=== PATIENT | female | born 1965 | race Caucasian/White ===

== ENCOUNTER 2020-04-25 08:42 | Day surgery (SDC) | payer MEDICAID ==
[~2020-04-25] VITALS: Ht 157.5 cm; Wt 62.6 kg
[2020-04-25 09:10] VITALS: BP 123/58
[2020-04-25] MEDS ORDERED: normal saline 1000ml 1,000 ML IV SCH (09:10)
[2020-04-25] MEDS ORDERED: TRAZ-256 (09:15)
[2020-04-25] MEDS ORDERED: HYDR12.55 PO (09:15)
[2020-04-25] MEDS ORDERED: TIOT18CA3 (09:15)
[2020-04-25] MEDS ORDERED: FLUT16SP20 (09:15)
[2020-04-25] MEDS ORDERED: AMLO5TAB16 PO (09:18)
[2020-04-25] MEDS ORDERED: LISI-600 PO (09:18)
[2020-04-25] MEDS ORDERED: ADV50250 IH (09:18)
[2020-04-25] MEDS ORDERED: IBUP-2697 (09:31)
[2020-04-25] MEDS ORDERED: calcium PO (09:31)
[2020-04-25] MEDS ORDERED: MULT-1085 PO (09:31)
[2020-04-25] MEDS ORDERED: GABA-530 PO (09:31)
[2020-04-25] MEDS ORDERED: MONT10TA21 PO (09:31)
[2020-04-25] MEDS ORDERED: flaxseed PO (09:31)
[2020-04-25] MEDS ORDERED: LACT1CAP65 PO (09:31)
[2020-04-25] MEDS ORDERED: HYDR-3686 PO (09:31)
[2020-04-25] MEDS ORDERED: vitamin c (09:31)
[2020-04-25] MEDS ORDERED: GLUCOSAMINE CHROND (09:31)
[2020-04-25] MEDS ORDERED: MV-M1TAB19 PO (09:31)
[2020-04-25] MEDS ORDERED: ALBU18HF2 INH (09:31)
[2020-04-25] MEDS ORDERED: VITA-268 PO (09:31)
[2020-04-25] MEDS ORDERED: ATR0.5NEB NEB (09:31)
[2020-04-25] MEDS ORDERED: BUDE10.27 (09:33)
[2020-04-25 09:50] LABS: BASOPHILS % (AUTO) 0.2 % (0-1); EOSINOPHILS # (AUTO) 0.3 X10'3 (0-0.9); EOSINOPHILS % (AUTO) 2.7 % (0-6); HEMATOCRIT 38.9 % (35.0-45.0); HEMOGLOBIN 13.5 g/dl (12.0-16.0); LYMPHOCYTES # (AUTO) 2.9 X10'3 (1.1-4.8); MEAN CORPUSCULAR HEMOGLOBIN 33.3 PG (27.0-31.0); MEAN CORPUSCULAR HGB CONC 34.6 g/dL (33.0-36.5); MEAN CORPUSCULAR VOLUME 96.3 FL (78-98); MEAN PLATELET VOLUME 6.8 FL (7.4-10.4); MONOCYTES # (AUTO) 1.2 X10'3 (0-0.9); MONOCYTES % (AUTO) 12.6 % (2-12); NEUTROPHILS # (AUTO) 5.3 X10'3 (1.8-7.7); NEUTROPHILS % (AUTO) 54.5 % (42-75); PLATELET COUNT 374 X10'3 (140-440); RED BLOOD COUNT 4.04 X10'6 (4.20-5.60); RED CELL DISTRIBUTION WIDTH 15.4 % (11.5-14.5); WHITE BLOOD COUNT 9.7 X10'3 (4.5-11.0)
[2020-04-25] MEDS ORDERED: midazolam 2 mg/2 ml injection ONE (10:12)
[2020-04-25] MEDS ORDERED: fentaNYL/PF 50MCG/1 ML 2ML syringe ONE (10:13)
[2020-04-25 10:35] VITALS: BP 146/33
[2020-04-25 11:00] VITALS: BP 117/83
== END 2020-04-25 11:00 | disposition home or self-care (01) ==
LOC: SSTAY O 08:42
PROVIDERS: ATTEND Radiology Diagnostic Radiology
DX: R91.1 Solitary pulmonary nodule (principal); J98.4 Other disorders of lung; Z53.8 Procedure and treatment not carried out for other reasons; Z87.01 Personal history of pneumonia (recurrent); J44.9 Chronic obstructive pulmonary disease, unspecified; I10 Essential (primary) hypertension
CPT/HCPCS: 36415; 71260; 85025; 87635; J2250; J3010

== ENCOUNTER 2021-08-25 11:43 | Emergency (ER) | payer MEDICAID ==
[~2021-08-25] VITALS: Ht 157.5 cm; Wt 58.0 kg
[~2021-08-25 11:43] MED LIST: ADV50250 IH; ALBU18HF2 INH; AMLO5TAB16 PO; ATR0.5NEB NEB; BUDE10.27; FLUT16SP20; GABA-530 PO; GLUCOSAMINE CHROND; HYDR-3686 PO; HYDR12.55 PO; IBUP-2697; LACT1CAP65 PO; LISI20TA28 PO; MONT10TA21 PO; MULT-1085 PO; MV-M1TAB19 PO; TIOT18CA3; TRAZ-256; VITA-268 PO; calcium PO; flaxseed PO; vitamin c
[2021-08-25] MEDS ORDERED: methylPREDNISolone sod succ 125mg/2ml vial IV ONE (12:20)
[2021-08-25 13:20] LABS: BASOPHILS # (AUTO) 0.1 X10'3 (0-0.2); EOSINOPHILS # (AUTO) 1.7 X10'3 (0-0.9); EOSINOPHILS % (AUTO) 11.9 % (0-6); HEMATOCRIT 34.5 % (35.0-45.0); HEMOGLOBIN 11.2 g/dl (12.0-16.0); LYMPHOCYTES # (AUTO) 1.9 X10'3 (1.1-4.8); LYMPHOCYTES % (AUTO) 13.5 % (21-51); MEAN CORPUSCULAR HEMOGLOBIN 29.6 PG (27.0-31.0); MEAN CORPUSCULAR HGB CONC 32.4 g/dL (33.0-36.5); MEAN CORPUSCULAR VOLUME 91.3 FL (78-98); MEAN PLATELET VOLUME 6.9 FL (7.4-10.4); MONOCYTES # (AUTO) 1.1 X10'3 (0-0.9); MONOCYTES % (AUTO) 7.5 % (2-12); NEUTROPHILS # (AUTO) 9.4 X10'3 (1.8-7.7); NEUTROPHILS % (AUTO) 66.1 % (42-75); PLATELET COUNT 434 X10'3 (140-440); RED BLOOD COUNT 3.78 X10'6 (4.20-5.60); RED CELL DISTRIBUTION WIDTH 19.1 % (11.5-14.5); WHITE BLOOD COUNT 14.2 X10'3 (4.5-11.0)
[2021-08-25 13:35] LABS: ANISOCYTOSIS 2+; HYPOCHROMASIA 1+; PLATELET ESTIMATE NORMAL
[2021-08-25 13:37] LABS: ALANINE AMINOTRANSFERASE 21 U/L (12-78); ALBUMIN 3.4 G/DL (3.4-5.0); ALBUMIN/GLOBULIN RATIO 1.1 (1.1-1.5); ALKALINE PHOSPHATASE 95 IU/L (46-116); ANION GAP 10 (8-16); ASPARTATE AMINO TRANSFERASE 18 U/L (10-37); BILIRUBIN,TOTAL 0.2 MG/DL (0.1-1.0); BLOOD UREA NITROGEN 10 MG/DL (7-18); BUN/CREATININE RATIO 14.3 (6.6-38.0); CALCIUM 8.7 MG/DL (8.5-10.1); CHLORIDE 107 MMOL/L (99-107); GLUCOSE 96 MG/DL (70-104); POTASSIUM 3.8 MMOL/L (3.5-5.1); SODIUM 146 MMOL/L (135-145); TOTAL CARBON DIOXIDE 29.2 MMOL/L (24-32); TOTAL PROTEIN 6.6 G/DL (6.4-8.2); eGFR 87 ML/MIN
[2021-08-25] MEDS ORDERED: AMOX-117 PO (14:16)
[2021-08-25] MEDS ORDERED: DOXY-11 PO (14:16)
[2021-08-25] MEDS ORDERED: albuterol 2.5 MG/3 ML nebule CONTNEB PRN (14:25)
[2021-08-25 16:58] VITALS: BP 177/105
== END 2021-08-25 17:00 | disposition home or self-care (01) ==
LOC: ER 11:44
DX: J18.9 Pneumonia, unspecified organism (principal); J44.9 Chronic obstructive pulmonary disease, unspecified; R06.02 Shortness of breath; R05.9 Cough, unspecified; Z88.2 Allergy status to sulfonamides; Z79.2 Long term (current) use of antibiotics; Z79.899 Other long term (current) drug therapy
CPT/HCPCS: 36415; 71045; 80053; 83605; 84145; 85008; 85025; 87040; 93005; 94644; 96374; 99285; J2930; 94640; 94760; A7015

== ENCOUNTER 2022-03-13 16:35 | Emergency (ER) | payer MEDICAID ==
[~2022-03-13] VITALS: Ht 157.5 cm; Wt 52.3 kg
[2022-03-13 17:33] LABS: BASOPHILS # (AUTO) 0.1 X10'3 (0-0.2); BASOPHILS % (AUTO) 1.5 % (0-1); EOSINOPHILS # (AUTO) 0.7 X10'3 (0-0.9); EOSINOPHILS % (AUTO) 8.3 % (0-6); HEMATOCRIT 33.3 % (35.0-45.0); HEMOGLOBIN 11.4 g/dl (12.0-16.0); LYMPHOCYTES # (AUTO) 2.4 X10'3 (1.1-4.8); LYMPHOCYTES % (AUTO) 29.3 % (21-51); MEAN CORPUSCULAR HEMOGLOBIN 32.7 PG (27.0-31.0); MEAN CORPUSCULAR HGB CONC 34.1 g/dL (33.0-36.5); MEAN CORPUSCULAR VOLUME 95.7 FL (78-98); MEAN PLATELET VOLUME 6.3 FL (7.4-10.4); MONOCYTES # (AUTO) 0.6 X10'3 (0-0.9); MONOCYTES % (AUTO) 7.5 % (2-12); NEUTROPHILS # (AUTO) 4.4 X10'3 (1.8-7.7); NEUTROPHILS % (AUTO) 53.4 % (42-75); PLATELET COUNT 500 X10'3 (140-440); RED BLOOD COUNT 3.48 X10'6 (4.20-5.60); RED CELL DISTRIBUTION WIDTH 13.8 % (11.5-14.5); WHITE BLOOD COUNT 8.3 X10'3 (4.5-11.0)
[2022-03-13 17:47] LABS: ALANINE AMINOTRANSFERASE 19 U/L (12-78); ALBUMIN 3.4 G/DL (3.4-5.0); ALBUMIN/GLOBULIN RATIO 0.9 (1.1-1.5); ALKALINE PHOSPHATASE 94 IU/L (46-116); ANION GAP 12 (8-16); ASPARTATE AMINO TRANSFERASE 14 U/L (10-37); BILIRUBIN,TOTAL 0.1 MG/DL (0.1-1.0); BLOOD UREA NITROGEN 7 MG/DL (7-18); BUN/CREATININE RATIO 10.8 (6.6-38.0); CALCIUM 9.3 MG/DL (8.5-10.1); CHLORIDE 102 MMOL/L (99-107); CREATININE 0.65 MG/DL (0.40-0.90); GLUCOSE 78 MG/DL (70-104); LIPASE < 50 U/L (73-393); SODIUM 139 MMOL/L (135-145); TOTAL CARBON DIOXIDE 25.3 MMOL/L (24-32); TOTAL PROTEIN 7.1 G/DL (6.4-8.2); eGFR > 90 ML/MIN
[2022-03-13 17:55] LABS: POTASSIUM 2.9 MMOL/L (3.5-5.1)
[2022-03-13 18:25] LABS: URINE HCG NEGATIVE (NEG)
[2022-03-13 18:30] LABS: CLARITY,URINE SLIGHTLY CLOUDY (Clear); COLOR,URINE YELLOW (Yellow); GLUCOSE, URINE NEGATIVE (Neg); KETONES,URINE NEGATIVE (Neg); LEUKOCYTE ESTERASE ,URINE NEGATIVE (Neg); NITRITES, URINE POSITIVE (Neg); OCCULT BLOOD,URINE NEGATIVE (Neg); PROTEIN,URINE NEGATIVE (Neg); UROBILINOGEN,URINE 0.2 E.U/dL (0.2-1.0)
[2022-03-13 18:49] LABS: UA COLLECTION TYPE CLN CATCH MIDSTREAM
[2022-03-13 18:51] LABS: BACTERIA,URINE 4+ /HPF (Neg); MUCUS STRANDS FEW /LPF (Neg); RBC,URINE 0-2 /HPF (0-2); SQUAMOUS EPITHELIAL CELL,UR FEW /LPF (FEW); WBC,URINE 20-30 /HPF (0-4)
[2022-03-13] MEDS ORDERED: ketorolac trometh. 30mg/ml inj. IV ONE (21:25)
[2022-03-13] MEDS ORDERED: POTASSIUM BICARB 20meq eff tab 20 MEQ TABLET.EFF PO ONE (21:25)
[2022-03-13] MEDS ORDERED: potassium Cl 10 mEq/100mL bag IV ONE (21:25)
[2022-03-13] MEDS: normal saline 500ml IV soln 500 ML IV SCH ×2 (21:25→23:55)
[2022-03-13] MEDS ORDERED: CefTRIAXone/D5W-Rocephin 1gm 50 ML IV ONE (21:25)
[2022-03-14] MEDS ORDERED: CEPH-585 PO (00:20)
[2022-03-14 00:53] VITALS: BP 146/93
== END 2022-03-14 00:45 | disposition home or self-care (01) ==
LOC: ER 16:35
DX: N39.0 Urinary tract infection, site not specified (principal); E87.6 Hypokalemia; J44.9 Chronic obstructive pulmonary disease, unspecified; I10 Essential (primary) hypertension; Z88.2 Allergy status to sulfonamides; Z79.899 Other long term (current) drug therapy; Z79.1 Long term (current) use of non-steroidal anti-inflammatories (NSAID); Z79.2 Long term (current) use of antibiotics
CPT/HCPCS: 36415; 74176; 80053; 81001; 81025; 83605; 83690; 84145; 85025; 87040; 87077; 87088; 87186; 93005; 96361; 96365; 96375; 99285; J0696; J1885; J3480; J7030; J7040; A4615

== ENCOUNTER 2023-01-31 10:47 | Day surgery (SDC) | payer MEDICAID ==
[~2023-01-31] VITALS: Ht 157.5 cm; Wt 53.6 kg
[~2023-01-31 10:47] MED LIST changes: +CEPH-585 PO; +MONT-47 PO; -MONT10TA21 PO
[2023-01-31] MEDS ORDERED: OXYC1TAB17 PO (11:41)
[2023-01-31] MEDS ORDERED: POT (11:41)
[2023-01-31] MEDS ORDERED: PANT40TA54 PO (11:41)
[2023-01-31] MEDS ORDERED: ONDA-103 PO (11:41)
[2023-01-31] MEDS ORDERED: SENN-145 PO (11:41)
[2023-01-31] MEDS ORDERED: ALEN70TA37 PO (11:41)
[2023-01-31] MEDS ORDERED: HYDR-3972 PO (11:41)
[2023-01-31] MEDS ORDERED: MORP-92 PO (11:41)
[2023-01-31] MEDS ORDERED: DOCU-337 (11:46)
[2023-01-31] MEDS ORDERED: POTA10CA85 PO (11:47)
[2023-01-31] MEDS ORDERED: PANT-47 PO (11:48)
[2023-01-31] MEDS ORDERED: MORP15TA PO (11:49)
[2023-01-31] MEDS ORDERED: SENN-145 (11:50)
[2023-01-31] MEDS ORDERED: HYDR-3973 PO (11:51)
[2023-01-31] MEDS ORDERED: ALEN70TA19 PO (11:52)
[2023-01-31] MEDS ORDERED: METO5TAB85 PO (11:52)
[2023-01-31] MEDS ORDERED: FLUT1DIS15 INH (11:53)
[2023-01-31] MEDS ORDERED: ATR0.5NEB NEB (11:54)
[2023-01-31] MEDS ORDERED: MIDAZolam 1 MG/ML 5ML VIAL ONE ×2 (12:17→13:40)
[2023-01-31] MEDS ORDERED: fentaNYL/PF 50MCG/1 ML 2ML syringe ONE ×3 (12:17→13:40)
[2023-01-31] MEDS ORDERED: LIDOcaine Viscous 15ml cup ONE ×2 (12:17→13:40)
[2023-01-31 12:30] VITALS: BP 104/72; PULSE 96; RESP 19
[2023-01-31] MEDS ORDERED: diphenhydrAMINE 50 mg/ml inj ONE (12:48)
[2023-01-31 13:49] VITALS: BP 102/69; PULSE 83; RESP 17; O2SAT 95
[2023-01-31 13:59] VITALS: BP 104/67; PULSE 82; RESP 17; O2SAT 97
[2023-01-31 14:09] VITALS: BP 97/66; PULSE 79; RESP 15; O2SAT 97
[2023-01-31 14:19] VITALS: BP 90/65; PULSE 77; RESP 17; O2SAT 96
== END 2023-01-31 14:26 | disposition home or self-care (01) ==
LOC: GI LAB 10:47
PROVIDERS: ATTEND Internal Medicine Gastroenterology
DX: D50.9 Iron deficiency anemia, unspecified (principal); R10.13 Epigastric pain; D12.2 Benign neoplasm of ascending colon; D12.4 Benign neoplasm of descending colon; B37.81 Candidal esophagitis; K29.70 Gastritis, unspecified, without bleeding; I10 Essential (primary) hypertension; J44.9 Chronic obstructive pulmonary disease, unspecified; F17.210 Nicotine dependence, cigarettes, uncomplicated; Z72.89 Other problems related to lifestyle; Z79.899 Other long term (current) drug therapy
CPT/HCPCS: 43239; 45385; 99152; 99153; C1889; J1200; J2250; J3010; J7030; Z7512; 45382; A4620